=== PATIENT | male | born 1955 | race Caucasian/White ===

== ENCOUNTER 2022-11-28 08:55 | Outpatient (CLI) | payer BC, SELFPAY | END 2022-11-28 08:56 | disposition home or self-care (01) | PROVIDERS: PCP Family Medicine; Visit Provider Physician Assistant | DX: H90.3 Sensorineural hearing loss, bilateral (principal) | CPT/HCPCS: 92557; 92567 ==

== ENCOUNTER 2022-12-26 10:46 | Outpatient (RCR) | payer BC, SELFPAY | END 2023-03-26 23:59 | disposition home or self-care (01) | LOC: CHSAUDIO 10:46 | PROVIDERS: PCP Family Medicine; Visit Provider Family Medicine | DX: Z46.1 Encounter for fitting and adjustment of hearing aid (principal) | CPT/HCPCS: 99199 ==

== ENCOUNTER 2023-01-27 09:49 | Outpatient (RCR) | payer BC, SELFPAY | END 2023-01-27 23:59 | disposition home or self-care (01) | LOC: ANHAUDIO 09:49 | PROVIDERS: PCP Family Medicine; Visit Provider Family Medicine | DX: Z46.1 Encounter for fitting and adjustment of hearing aid (principal) | CPT/HCPCS: V5261 ==

== ENCOUNTER 2023-06-08 08:47 | Outpatient (CLI) | payer MEDICARE, SELFPAY ==
[2023-06-08 11:12] LABS: Prostate Specific Antigen 1.3 ng/mL (< OR = 4.0)
== END 2023-06-08 08:48 | disposition home or self-care (01) ==
PROVIDERS: PCP Family Medicine; Visit Provider Urology
DX: C61 Malignant neoplasm of prostate (principal); Z12.5 Encounter for screening for malignant neoplasm of prostate
CPT/HCPCS: 36415; 84153; G0103

== ENCOUNTER 2024-03-12 09:14 | Outpatient (CLI) | payer OTHER, SELFPAY ==
--- NOTE | 2024-04-02 20:02 | WPDSLEEPSTUD ---
Sleep Study Date of Study: 03/12/24 Ordering Provider: Navin Roach MD Interpreting Physician: Lay Roberts DO Sleep Study Type: Split Polysomnogram Height: 1.7 m Weight: 84.368 kg Body Mass Index: 29.1 Neck Circumference (inches): 19 Davis: 6 Reason for Sleep Study Loud snoring, daytime hypersomnia Sleep History The patient is a 68-year-old male that had a sleep study ordered by his primary care physician for evaluation of sleep apnea. The patient rarely awakens from sleep short of breath. He occasionally awakens at night with heartburn, belching or cough. He constantly snores loudly enough that others complain. He frequently has trouble sleeping when he has a cold. He rarely wakes up gasping for air throughout the night. He frequently has breathing problems at night observed by himself or others. He denies sweating excessively at night. He denies having heart palpitations or irregular heartbeats during the night. He frequently falls asleep during the day but never while driving. He denies sleep paralysis, cataplexy and hypnagogic / hypnopompic hallucinations. He denies having trouble at school or work due to sleepiness. He denies having nightmares. He rarely remembers his dreams. He rarely has thoughts racing through his mind. He denies feeling sad or depressed. He rarely has anxiety. He rarely has muscular tension. He rarely notices parts of his body jerk. He occasionally kicks during the night. He denies having crawling and aching feelings in his legs and denies having leg pain during the night. He denies grinding his teeth during sleep and denies awakening with morning jaw pain. He is occasionally bothered by pain during the day and occasionally awakened by pain during the night. He rarely wakes up feeling stiff in the morning. He denies waking up with sore or achy muscles. He rarely wakes up with pain in the neck, spine and other joints. He goes to bed at 10:00 p.m. on both weekdays and weekends. It takes him 1-2 hours to fall asleep. He wakes up 2-3 times throughout the night to adjust his position and he is able to fall asleep within a few minutes. He wakes up between 5-6 a.m. on both weekdays and weekends. He typically gets 4-6 hours of sleep per night. He does not stay in bed after waking up in the morning. He currently lives with his . He denies consuming any caffeinated beverages within 2 hours of bedtime. He denies engaging in physical exercise before bedtime. He will watch television before falling asleep. He will take naps in the afternoon or the evening and they are refreshing. He consumes 3 caffeinated sodas per day. He quit smoking cigarettes 22 years ago. He denies alcohol and recreational drug use. [facility] Past Medical History Medical History Arthritis Cancer GERD (gastroesophageal reflux disease) Heart attack High cholesterol Hypertension Social History Social History Smoking status: Former smoker Alcohol intake: never Lack of Transportation: No Lack of Food: Never True Current Housing: I Have Housing Concerned About Future Housing: No Difficulty Paying Gas/Electric Bills: No Difficulty Paying for Meds: No Currently Unemployed: No Education: High School Diploma/GED Difficulty w/ Childcare or Family Care: No Medications Home Medications Medication Instructions Recorded Confirmed Type aspirin 81 mg tablet,delayed 81 mg PO DAILY 11/20/19 02/08/24 History release (Adult Low Dose Aspirin) cholecalciferol (vitamin D3) 25 1,000 unit PO DAILY 11/20/19 02/08/24 History mcg (1,000 unit) capsule icosapent ethyl 1 gram capsule 2 g PO BID 08/10/23 02/08/24 History (Vascepa) sulfacetamide sodium 10 % eye drops 2 drp ophthalmic (eye) Q4H #5 mL 09/25/23 02/08/24 Rx tobramycin 0.3 % eye drops 1 drp EACH EYE Q3H #5 mL 10/04/23 05
[2024-04-02 20:03] VITALS: BMI 29.1
== END 2024-03-13 07:26 | disposition home or self-care (01) ==
LOC: ANHCSM 09:14
PROVIDERS: PCP Emergency Medicine; Visit Provider Emergency Medicine
DX: G47.33 Obstructive sleep apnea (adult) (pediatric) (principal)
CPT/HCPCS: 95811

== ENCOUNTER 2024-03-23 08:06 | Outpatient (CLI) | payer OTHER, SELFPAY ==
[2024-03-23 08:50] LABS: Alanine Aminotransferase 55 U/L (6-50); Albumin Level 4.6 g/dL (3.5-5.1); Alkaline Phosphatase 96 U/L (38-126); Anion Gap 9 mmol/L (4-12); Aspartate Amino Transferase 44 U/L (17-59); Bilirubin,Total 0.7 mg/dL (0.2-1.3); Blood Urea Nitrogen 16 mg/dL (9-20); Calcium 9.2 mg/dL (8.4-10.2); Carbon Dioxide 24 mmol/L (22-30); Chloride 108 mmol/L (98-107); Cholesterol 178 mg/dL (0-200); Estimated Glomerular Filt Rate > 60; Glucose 133 mg/dL (65-110); HDL Direct 62 mg/dL; Potassium 4.8 mmol/L (3.4-5.0); Sodium 141 mmol/L (137-145); Triglycerides 165 mg/dL (<150)
[2024-03-23 09:01] LABS: LDL Cholesterol Direct 94 mg/dL
[2024-03-23 09:19] LABS: Prostate Specific Antigen 1.7 ng/mL (< OR = 4.0)
[2024-03-23 09:30] LABS: Hemoglobin A1C 6.7 % (<5.7)
== END 2024-03-23 08:07 | disposition home or self-care (01) ==
LOC: ANHLAB 08:10
PROVIDERS: PCP Emergency Medicine; Visit Provider Emergency Medicine
DX: R73.03 Prediabetes (principal); E78.00 Pure hypercholesterolemia, unspecified; I10 Essential (primary) hypertension; Z85.46 Personal history of malignant neoplasm of prostate; G47.00 Insomnia, unspecified; Z12.5 Encounter for screening for malignant neoplasm of prostate
CPT/HCPCS: 36415; 80053; 80061; 83036; 84153; 84443; G0103

== ENCOUNTER 2024-07-18 11:20 | Outpatient (CLI) | payer OTHER, SELFPAY | END 2024-07-18 11:21 | disposition home or self-care (01) | PROVIDERS: PCP Family Medicine; Visit Provider Family Medicine | DX: D64.9 Anemia, unspecified (principal) | CPT/HCPCS: 36415; 82728 ==